=== PATIENT | female | born 1955 | race Caucasian/White ===

== ENCOUNTER 2018-02-06 08:46 | Day surgery (SDC) | payer OTHER, SELFPAY ==
[2018-02-06] MEDS: SODIUM CHLORIDE 0.9% 1,000 ML 200 ML IV (09:10)
[2018-02-06 09:15] VITALS: BP 153/91; PULSE 91; RESP 16; TEMP 36; O2SAT 99; BMI 27.3
--- NOTE | 2018-02-06 09:50 | PM.HP.1 ---
History of Present Illness Date Patient Seen: 02/06/18 Time Patient Seen: 09:50 Chief complaint: [id number] Narrative: The patient is a woman whose last colonoscopy was about 10 years ago. She is here for screening exam. She normally does not have bleeding but at the end of this bowel prep she has developed a little blood. No family history of colon cancer Patient History Surgical History History of prolapse of bladder (Resolved) Status post FARRAH-BSO (Resolved) Family & Social History Family History: Reviewed 02/06/18 by Dangelo Callejas MD Social History: household members spouse Meds Home Medications Medication Instructions Recorded Confirmed Type cetirizine [Zyrtec] 10 mg PO DIRECTED 02/06/18 02/06/18 History phenylephrine HCl [Sudafed PE] 10 mg PO DIRECTED 02/06/18 02/06/18 History Allergies Allergy/AdvReac Type Severity Reaction Status Date / Time sulfamethoxazole Allergy Severe 'I Unverified 11/01/17 12:34 [From BACTRIM] stiffened up' trimethoprim [From BACTRIM] Allergy Severe 'I Unverified 11/01/17 12:34 stiffened up' erythromycin base Allergy Intermediate RASH Unverified 11/01/17 12:34 [From ERYTHROCIN] tetracycline [TETRACYCLINE] Allergy Intermediate RASH Unverified 11/01/17 12:34 Review of Systems Review of Systems All systems reviewed & are unremarkable except as noted in HPI and below Allergic/Immunologic Comments: Seasonal allergies Exam Vital Signs (past 8 hours): - 02/06/18 09:15 Temperature 96.8 F L Pulse Rate 91 H Respiratory Rate 16 Blood Pressure 153/91 H Pulse Oximetry 99 Oxygen Delivery Method Room Air Narrative Exam Narrative: Operative no apparent distress. Lungs are clear to auscultation no rales or rhonchi heart regular rate and rhythm no murmur gallop abdomen is soft nontender without mass. She is alert and oriented x3. Assessment & Plan (1) Screening for colon cancer: Current visit: Yes Status: Acute Plan: Assessment/Plan Narrative: Will proceed to colonoscopy. I have discussed the procedure and the rationale with the patient including risks of bleeding, perforation which would necessitate a major operation, failure to find remove all lesions and the potential to tattoo. They appeared to understand and wished to proceed.
--- NOTE | 2018-02-06 09:56 | PM.PREOP ---
Pre-operative Note Interval Note Pre-op Check: Yes History & Physical exam performed today by Physician Changes: Yes ASA Class (for procedural sedation): I
--- NOTE | 2018-02-06 10:04 | SUR.OPER ---
to endo from opd via cart respirtions unlabored iv unlabored iv patent positioned per self for procedure
--- NOTE | 2018-02-06 10:26 | PM.OP.ENDO ---
Operative Date/Time/Diagnoses Date of procedure: 02/06/18 Time of procedure: 10:26 Pre-op diagnosis: Screening examination. Last exam over 10 years ago Post-op diagnosis: same (Diverticulosis principally of the sigmoid but scattered elsewhere) Procedure & Clinicians Study performed: Colonoscopy Same procedure as scheduled: Yes Indications: Screening exam Surgeon: Dangelo Callejas Procedure Notes SCOAP/Timeout: Perform Procedure in detail: The patient was placed in the left lateral decubitus position and underwent IV sedation directed by the surgeon consisting of fentanyl and Versed. Digital exam was unremarkable. The scope was inserted and advanced through the rectum into the sigmoid, descending, transverse, and ascending colon. The patient had sigmoid diverticulosis and a few diverticula elsewhere. The cecum was reached identified by the ileocecal valve and the appendiceal opening. The ileocecal valve was not cannulated. The scope was gradually brought out. No Polyps were found. The scope ultimately was retroflexed in the rectum. The appearance was remarkable for small internal hemorrhoids without ulceration. The scope was removed and the patient tolerated the procedure well Scope withdrawal time: 8 min Sedation minutes: 26 Findings: diverticulosis and internal hemorrhoids Specimen(s): none sent Complications: none Recommendations: Colonscopy in 10 years Follow up: as needed Disposition: PACU
[2018-02-06] MEDS: fentaNYL 250 MCG/5 ML INJ IV (10:29)
[2018-02-06] MEDS: MIDAZOLAM 5 MG/5 ML VIAL 7 MG IV (10:30)
[2018-02-06 10:32] VITALS: BP 139/92; PULSE 75; RESP 15; TEMP 36.1; O2SAT 98
[2018-02-06 10:36] VITALS: BP 142/82; PULSE 82; RESP 16; O2SAT 99
[2018-02-06 10:50] VITALS: BP 138/85; PULSE 63; RESP 20; TEMP 35.8; O2SAT 99
[2018-02-06 11:08] VITALS: BP 114/74; PULSE 59; RESP 15; TEMP 36.1; O2SAT 100
== END 2018-02-06 11:23 | disposition home or self-care (01) ==
PROVIDERS: Visit Provider Specialist
PROC: 0DJD8ZZ Inspection of Lower Intestinal Tract, Via Natural or Artificial Opening Endoscopic (ICD-10-PCS; CPT 45378; principal; 2018-02-06 10:00)
DX: Z12.11 Encounter for screening for malignant neoplasm of colon (principal); K57.30 Diverticulosis of large intestine without perforation or abscess without bleeding; K64.8 Other hemorrhoids
CPT/HCPCS: 45378; 99152; 99153; J2250; J3010

== ENCOUNTER → 2022-09-21 15:07 | Outpatient (CLI) | payer MEDICARE, OTHER, SELFPAY ==
[2022-09-21 16:27] LABS: BUN Creatinine Ratio 20.5 (6-22); Blood Urea Nitrogen 16 mg/dL (7-17); Calcium 9.2 mg/dL (8.4-10.2); Carbon Dioxide 31 mmol/L (22-32); Chloride 99 mmol/L (98-107); Estimated Glomerular Filt Rate > 60 mL/min (>60); Glucose 99 mg/dL (80-110); HEMOLYSIS < 15 (0-50); Potassium 4.2 mmol/L (3.4-5.1); Sodium 141 mmol/L (137-145)
== END ==
PROVIDERS: PCP Family Medicine; Referring Provider Family Medicine; Visit Provider Family Medicine
DX: R03.0 Elevated blood-pressure reading, without diagnosis of hypertension (principal)
CPT/HCPCS: 36415; 80048

== ENCOUNTER → 2023-06-29 08:07 | Outpatient (CLI) | payer MEDICARE, OTHER, SELFPAY ==
[2023-06-29 09:23] LABS: Hematocrit 41.7 % (36-46); Hemoglobin 14.7 g/dL (12.0-16.0); Mean Corpuscular HGB Conc 35.2 % (30-36); Mean Corpuscular Hemoglobin 30.2 PG (26-34); Mean Corpuscular Volume 85.9 fL (80-100); Platelet Count 232 X10^3/uL (150-400); Red Blood Cell Count 4.86 X10^6/uL (4.0-5.2); Red Cell Distribution Width 12.4 % (11.6-14.8)
[2023-06-29 09:29] LABS: Cholesterol 220 mg/dL (140-199); HDL Cholesterol 60 mg/dL (40-60); LDL Cholesterol Calculated 138 mg/dL (<100); Triglycerides 111 mg/dL (35-150)
[2023-06-29 09:36] LABS: High Sensitivity CRP - Cardiac 3.2 mg/L (1.0-3.0)
== END ==
PROVIDERS: PCP Family Medicine; Referring Provider Family Medicine; Visit Provider Family Medicine
DX: I10 Essential (primary) hypertension (principal); D64.9 Anemia, unspecified; E78.5 Hyperlipidemia, unspecified
CPT/HCPCS: 36415; 80061; 85027; 86140

== ENCOUNTER → 2024-01-04 07:35 | Outpatient (CLI) | payer MEDICARE, OTHER, SELFPAY ==
[2024-01-04 08:57] LABS: Hemoglobin A1C% w Est Avg Glu 5.1 % (4.0-6.0)
[2024-01-04 09:04] LABS: Alanine Aminotransferase 20 IU/L (<35); Albumin Globulin Ratio 1.7 (1.0-2.8); Alkaline Phosphatase 73 U/L (38-126); Aspartate Aminotransferase 29 IU/L (14-36); Bilirubin Total 0.7 mg/dL (0.2-1.3); Blood Urea Nitrogen 22 mg/dL (7-17); Calcium 9.1 mg/dL (8.4-10.2); Carbon Dioxide 33 mmol/L (22-32); Chloride 104 mmol/L (98-107); Cholesterol 207 mg/dL (140-199); Estimated Glomerular Filt Rate > 60 mL/min (>60); Globulin 2.4 g/dL (1.7-4.1); Glucose 87 mg/dL (80-110); HDL Cholesterol 59 mg/dL (40-60); HEMOLYSIS < 15 (0-50); LDL Cholesterol Calculated 123 mg/dL (<100); Potassium 4.2 mmol/L (3.4-5.1); Sodium 140 mmol/L (137-145); Total Protein 6.4 g/dL (6.3-8.2); Triglycerides 123 mg/dL (35-150)
== END ==
PROVIDERS: PCP Family Medicine; Referring Provider Family Medicine; Visit Provider Family Medicine
DX: R03.0 Elevated blood-pressure reading, without diagnosis of hypertension (principal); E78.00 Pure hypercholesterolemia, unspecified
CPT/HCPCS: 36415; 80053; 80061; 83036; 86140

== ENCOUNTER → 2024-01-19 10:48 | Outpatient (CLI) | payer MEDICARE, OTHER, SELFPAY ==
--- NOTE | 2024-01-19 10:49 | DI.RAD.S_ITS ---
PROCEDURE: XR HIP W PEL IF DONE RT 2V INDICATIONS: bone density screening TECHNIQUE: AP pelvis with lateral view(s) of the right hip(s). COMPARISON: None. FINDINGS: Bones: No fractures or dislocations. Mild bilateral hip DJD. This is demonstrable by joint space narrowing and acetabular roof sclerosis. Pelvic ring appears intact. No suspicious bony lesions. Soft tissues: The visualized bowel gas pattern is normal. No suspicious soft tissue calcifications. IMPRESSION: Mild right hip DJD. Dictated by: Suman Floyd M.D. on 01/19/2024 at 23:38 Approved by: Suman Floyd M.D. on 01/19/2024 at 23:39
--- NOTE | 2024-01-19 11:04 | DI.RAD.S_ITS ---
PROCEDURE: XR DEXA AXIAL SKELETON INDICATIONS: right hip pain COMPARISON: None. FINDINGS: Lumbar Spine: Bone mineral density 1.012 g/cm2, T score -0.3. Left Hip: Bone mineral density 0.776 g/cm2, T score -1.4. Left Femoral Neck: Bone mineral density 0.661 g/cm2, T score -1.7. Right Hip: Bone mineral density 0.692 g/cm2, T score -2.0. Right Femoral Neck: Bone mineral density 0.619 g/cm2, T score -2.1. (T score greater or equal to -1.0 to: NORMAL) (T score from -1.1 to -2.4: OSTEOPENIA) (T score less than or equal to -2.5: OSTEOPOROSIS) IMPRESSION: Osteopenia. Follow-up guidelines as follows: Osteoporosis: Consider a repeat DEXA and Vertebral Fracture Assessment (VFA) exam in 2 years or sooner if medically necessary, to reassess this patient's status. Osteopenia: Consider a repeat DEXA in 2-3 years to reassess this patient's status, or if there is a new clinical indication. Normal: Consider a repeat DEXA in 5 years or sooner, or if there is a new clinical indication. All treatment decisions require clinical judgment and consideration of individual patient factors, including patient preferences, comorbidities, previous drug use, risk factors not captured in the FRAX model (e.g., frailty, falls, vitamin D deficiency, increased bone turnover, interval significant decline in bone density ) and possible under- or over-estimation of fracture risk by FRAX. In addition, the NOF Guide recommends that FDA-approved medical therapies be considered in postmenopausal women and men age >= 50 years with a: * Hip or vertebral (clinical or morphometric) fracture * T-score of <=-2.5 at the spine or hip * Ten-year fracture probability by FRAX of >= 3% for hip fracture or >=20% for major osteoporotic fracture. People with diagnosed cases of osteoporosis or at high risk for fracture should have regular bone mineral density tests. For patients eligible for Medicare, routine testing is allowed once every 2 years. The testing frequency can be increased to one year for patients who have rapidly progressing disease, those who are receiving or discontinuing medical therapy to restore bone mass, or have additional risk factors. Dictated by: Suman Floyd M.D. on 01/19/2024 at 22:28 Approved by: Suman Floyd M.D. on 01/19/2024 at 22:31
== END ==
PROVIDERS: PCP Family Medicine; Referring Provider Family Medicine; Visit Provider Family Medicine
DX: M85.89 Other specified disorders of bone density and structure, multiple sites (principal); M25.551 Pain in right hip; M16.11 Unilateral primary osteoarthritis, right hip
CPT/HCPCS: 73502; 77080

== ENCOUNTER → 2024-02-26 | Outpatient (CLI) | payer MEDICARE, OTHER, SELFPAY ==
--- NOTE | 2024-02-26 11:19 | DI.MG.S_ITS ---
BILATERAL DIGITAL SCREENING MAMMOGRAM 3D/2D WITH CAD: 02/26/2024 CLINICAL: Routine screening. Comparison is made to exams dated: 01/28/2022 mammogram, 04/09/2018 mammogram, and 05/12/2016 mammogram - outside location. Both breasts are almost entirely fatty (category a/<25% glandular tissue). Current study was also evaluated with a Computer Aided Detection (CAD) system. No significant masses, calcifications, or other findings are seen in either breast. There has been no significant interval change. IMPRESSION: NEGATIVE There is no mammographic evidence of malignancy. A 1 year screening mammogram is recommended. Based on the Tyrer Cuzick model (a risk assessment model) the patient's lifetime risk is 3.3% and her 10 year risk is 1.6%. According to the ACR, ACS, and NCCN guidelines, an annual breast MRI exam along with mammogram is recommended if the patient's lifetime risk is 20% or greater. This exam was interpreted at Station ID: [id number]. NOTE: For mammograms, a report in lay terms will be sent to the patient. Approximately 15% of breast malignancies will not be visualized mammographically. In the management of a palpable breast mass, a negative mammogram must not discourage biopsy of a clinically suspicious lesion. Electronically Signed By: Angel jean baptiste/jose:03/01/2024 12:01:11 letter sent: Normal Exam ACR BI-RADS Category 1: Negative [id number]
== END ==
PROVIDERS: PCP Family Medicine; Referring Provider Family Medicine; Visit Provider Family Medicine
DX: Z12.31 Encounter for screening mammogram for malignant neoplasm of breast (principal); R92.313 Mammographic fatty tissue density, bilateral breasts
CPT/HCPCS: 77063; 77067

== ENCOUNTER → 2024-05-19 11:47 | Outpatient (CLI) | payer MEDICARE, OTHER, SELFPAY | PROVIDERS: PCP Family Medicine; Visit Provider Nurse Practitioner Family | DX: R10.9 Unspecified abdominal pain (principal); N94.9 Unspecified condition associated with female genital organs and menstrual cycle; R30.0 Dysuria | CPT/HCPCS: 87086; 87210 ==

== ENCOUNTER → 2024-12-20 07:44 | Outpatient (CLI) | payer MEDICARE, OTHER, SELFPAY ==
[2024-12-20 09:03] LABS: Alanine Aminotransferase 19 IU/L (<35); Albumin 4.1 g/dL (3.5-5.0); Albumin Globulin Ratio 1.6 (1.0-2.8); Alkaline Phosphatase 72 U/L (38-126); Aspartate Aminotransferase 30 IU/L (14-36); Bilirubin Total 0.7 mg/dL (0.2-1.3); Blood Urea Nitrogen 17 mg/dL (7-17); Calcium 9.2 mg/dL (8.4-10.2); Carbon Dioxide 29 mmol/L (22-32); Chloride 103 mmol/L (98-107); Cholesterol 200 mg/dL (140-199); Estimated Glomerular Filt Rate > 60 mL/min (>60); Globulin 2.5 g/dL (1.7-4.1); Glucose 91 mg/dL (70-99); HDL Cholesterol 54 mg/dL (40-60); HEMOLYSIS < 15 (0-50); LDL Cholesterol Calculated 121 mg/dL (<100); Potassium 4.2 mmol/L (3.4-5.1); Sodium 138 mmol/L (137-145); Total Protein 6.6 g/dL (6.3-8.2); Triglycerides 125 mg/dL (35-150)
[2024-12-25 11:36] LABS: Estradiol, Sensitive 29.7 pg/mL (.)
== END ==
PROVIDERS: PCP Family Medicine; Referring Provider Family Medicine; Visit Provider Family Medicine
DX: E78.00 Pure hypercholesterolemia, unspecified (principal); R03.0 Elevated blood-pressure reading, without diagnosis of hypertension; Z79.890 Hormone replacement therapy
CPT/HCPCS: 36415; 80053; 80061; 82670

== ENCOUNTER → 2025-02-26 09:45 | Outpatient (CLI) | payer MEDICARE, OTHER, SELFPAY ==
--- NOTE | 2025-02-26 09:47 | DI.MG.S_ITS ---
MM screening mammo BI: 02/26/2025. BI-RADS: 1 CLINICAL: 69-year old female for bilateral screening mammogram. Tyrer-Cuzick lifetime risk of 2.7%. No personal or first-degree family history of breast cancer. PRIOR EXAMS 02/26/2024, outside films 01/22/2022, 04/09/2018, 05/12/2016. MAMMOGRAPHY TECHNIQUE: 2D and 3D (tomosynthesis) digital mammographic views obtained, with additional images as needed for full coverage. Current study was also evaluated with a Computer Aided Detection (CAD) system. DENSITY A. The breasts are almost entirely fatty. MAMMOGRAPHY FINDINGS Bilateral: No suspicious mass, asymmetry, microcalcification, or other abnormality seen. No significant change from comparison. IMPRESSION: * No evidence of malignancy. RECOMMENDATIONS Bilateral * Annual screening mammography. OVERALL ASSESSMENT CATEGORY BI-RADS-1: Negative. The [employer] recommends annual screening mammography beginning at age 40 for women with average risk of breast cancer. ELECTRONICALLY SIGNED: Vivien Mora M.D. on 02/26/2025 at 11:18:57 AM PT Interpreting Station ID: [id number]
== END ==
PROVIDERS: PCP Family Medicine; Referring Provider Family Medicine; Visit Provider Family Medicine
DX: Z12.31 Encounter for screening mammogram for malignant neoplasm of breast (principal); R92.313 Mammographic fatty tissue density, bilateral breasts
CPT/HCPCS: 77063; 77067

== ENCOUNTER → 2025-04-26 08:45 | Outpatient (CLI) | payer MEDICARE, OTHER, SELFPAY ==
[2025-04-27 08:09] LABS: CRP, High Sensitivity 2.58 mg/L (0.00-3.00)
== END ==
PROVIDERS: PCP Family Medicine; Referring Provider Family Medicine; Visit Provider Family Medicine
DX: Z79.890 Hormone replacement therapy (principal); E78.00 Pure hypercholesterolemia, unspecified
CPT/HCPCS: 36415; 82670; 86140